=== PATIENT | female | born 1960 | race Caucasian/White ===

== ENCOUNTER → 2017-11-30 | Outpatient (CLI) | payer OTHER ==
[~2017-11-30] MED LIST: ACET500; ACET500 PO; ALPR.5; AMOX875 PO; BUPR150ER; BUPR150T2; BUSP5 PO; CEPH500 PO; CYAN1000I; DOCU100 PO; DULO30; DULO30 PO; DULO60 PO; ESOM20; FAMO20 PO; FAMO40 PO; FENT100TP; FLUO20; GABA300; HYDACE5 PO; HYDR1TAB94 PO; IBUP800 PO; INTE30I; LIDO5TP; LOPE2C PO; MEDICAL MARIJAUNA; MODA200; MODA200 PO; MULVITMINE PO; NAPR220; NAPR500 PO; NAPR550 PO; Norco 5-325 Ta1 EACH PO; OMEP20ER PO; ONDA4 PO; OXYACE5T PO; OXYC20ER; OXYC40ER; PRAV20 PO; PRED20 PO; PREG75 PO; PROM25 PO; PROM25S PR; ROPI1 PO; SULTRIDS PO; SULTRISS PO; SUMA25; TRAACE PO; TRAM50 PO; TRAZ100; TRAZ100 PO; Valium5 MG PO; ZIPR60 PO; ZOLP10; Zofran Odt4 MG SL; [UNRECOGNIZED DRUG - OTHER]
[2017-11-30 13:21] LABS: BASOPHILS ABSOLUTE AUTO 0.01 K/mm3 (0.00-0.23); BASOPHILS PERCENT AUTO 0 % (0-2); EOSINOPHILS ABSOLUTE AUTO 0.07 K/mm3 (0.00-0.68); EOSINOPHILS PERCENT AUTO 1 % (0-6); Hematocrit 45.6 % (33.0-51.0); Hemoglobin 15.5 g/dL (11.5-16.0); IMMATURE GRAN ABSOLUTE AUTO 0.02 K/mm3 (0.00-0.10); IMMATURE GRAN PERCENT AUTO 0 % (0-1); LYMPHOCYTES ABSOLUTE AUTO 2.22 K/mm3 (0.84-5.20); LYMPHOCYTES PERCENT AUTO 30 % (21-46); MONOCYTES ABSOLUTE AUTO 0.37 K/mm3 (0.16-1.47); MONOCYTES PERCENT AUTO 5 % (4-13); Mean Corpuscular HGB 31.1 pg (26.0-34.0); Mean Corpuscular Volume 91 fL (80-100); Mean Platelet Volume 10.2 fL (9.1-12.4); NEUTROPHILS ABSOLUTE AUTO 4.66 K/mm3 (1.96-9.15); NEUTROPHILS PERCENT AUTO 63 % (41-73); Platelet Count 241 K/mm3 (150-400); RDW Coefficient Variation 12.1 % (11.7-14.2); Red Blood Cell Count 4.99 M/mm3 (3.80-5.20); White Blood Cell Count 7.35 K/mm3 (4.00-11.30)
[2017-11-30 13:29] LABS: Alanine Aminotransfer (ALT/SGP 23 U/L (12-78); Albumin, Blood 4.3 g/dL (3.4-5.0); Albumin/Globulin Ratio 1.4 (0.8-1.8); Alk Phos 84 U/L (40-126); Anion Gap 6 mmol/L (6-16); Aspartate Aminotrans (AST/SGOT 20 U/L (12-37); Bilirubin, Total 0.5 mg/dL (0.1-1.0); Blood Urea Nitrogen 10 mg/dL (8-24); Bun/Creatinine Ratio 11.8 (12.0-20.0); CO2, Blood 33 mmol/L (21-32); Calcium, Blood 9.3 mg/dL (8.5-10.1); Chloride, Blood 104 mmol/L (98-108); Creatinine, Blood 0.85 mg/dL (0.40-1.00); Globulin, Blood 3.1 g/dL (2.2-4.0); Glomerular Filtration Rate >60 (60-); Glucose, Blood 110 mg/dL (70-99); Potassium, Blood 4.1 mmol/L (3.5-5.5); Sodium, Blood 143 mmol/L (136-145); Total Protein, Blood 7.4 g/dL (6.4-8.2)
== END ==
LOC: LAB SHORT 13:14
PROVIDERS: Physician Assistant Surgical
DX: R10.11 Right upper quadrant pain (principal)
CPT/HCPCS: 80053; 83690; 85025

== ENCOUNTER 2017-12-01 14:10 | Observation (INO) | payer OTHER ==
[~2017-12-01] VITALS: Ht 162.6 cm; Wt 62.3 kg
[~2017-12-01 14:10] MED LIST changes: -BUSP5 PO; -DOCU100 PO; -HYDR1TAB94 PO; -PRAV20 PO
[2017-12-01 14:57] LABS: BASOPHILS ABSOLUTE AUTO 0.02 K/mm3 (0.00-0.23); BASOPHILS PERCENT AUTO 0 % (0-2); EOSINOPHILS ABSOLUTE AUTO 0.07 K/mm3 (0.00-0.68); EOSINOPHILS PERCENT AUTO 1 % (0-6); Hematocrit 48.1 % (33.0-51.0); Hemoglobin 15.9 g/dL (11.5-16.0); IMMATURE GRAN ABSOLUTE AUTO 0.02 K/mm3 (0.00-0.10); IMMATURE GRAN PERCENT AUTO 0 % (0-1); LYMPHOCYTES ABSOLUTE AUTO 2.92 K/mm3 (0.84-5.20); LYMPHOCYTES PERCENT AUTO 45 % (21-46); MONOCYTES ABSOLUTE AUTO 0.39 K/mm3 (0.16-1.47); MONOCYTES PERCENT AUTO 6 % (4-13); Mean Corpuscular HGB 30.3 pg (26.0-34.0); Mean Corpuscular HGB Conc 33.1 g/dL (31.5-36.5); Mean Corpuscular Volume 92 fL (80-100); Mean Platelet Volume 10.5 fL (9.1-12.4); NEUTROPHILS PERCENT AUTO 48 % (41-73); Platelet Count 228 K/mm3 (150-400); RDW Coefficient Variation 11.9 % (11.7-14.2); RDW Standard Deviation 40.3 fL (35.1-46.3); Red Blood Cell Count 5.25 M/mm3 (3.80-5.20); White Blood Cell Count 6.52 K/mm3 (4.00-11.30)
[2017-12-01 15:16] LABS: Alanine Aminotransfer (ALT/SGP 23 U/L (12-78); Albumin, Blood 4.1 g/dL (3.4-5.0); Alk Phos 81 U/L (50-136); Anion Gap 4 mmol/L (6-16); Aspartate Aminotrans (AST/SGOT 32 U/L (12-37); Bilirubin, Total 0.5 mg/dL (0.1-1.0); Blood Urea Nitrogen 11 mg/dL (8-24); Bun/Creatinine Ratio 15.9 (12.0-20.0); CO2, Blood 33 mmol/L (21-32); Calcium, Blood 9.2 mg/dL (8.5-10.1); Chloride, Blood 101 mmol/L (98-108); Creatinine, Blood 0.69 mg/dL (0.40-1.00); Globulin, Blood 4.1 g/dL (2.2-4.0); Glomerular Filtration Rate >60 (60-); Glucose, Blood 82 mg/dL (70-99); Potassium, Blood 4.7 mmol/L (3.5-5.5); Sodium, Blood 138 mmol/L (136-145); Total Protein, Blood 8.2 g/dL (6.4-8.2)
[2017-12-01 16:20] LABS: Source, Urine Clean Catch
[2017-12-01 16:24] LABS: Bilirubin, Urine Neg (Neg); Blood, Urine 2+ (Neg); Glucose Qualitative, Urine Neg (Neg); Ketones, Urine Neg (Neg); Leukocyte Esterase, Urine Neg (Neg); Nitrite, Urine Neg (Neg); Protein, Urine Neg (Neg); Urobilinogen, Urine NORM (Normal)
[2017-12-01 16:36] LABS: Appearance, Urine Clear (Clear); Color, Urine Pale Yellow (P-Yellow)
[2017-12-01 16:39] LABS: Bacteria Not Seen /hpf; Red Blood Cells, Urine 0-2 /hpf (0-2); Squamous Epithelial Cells Mod /hpf (Few); White Blood Cells, Urine Not Seen /hpf (0-5)
[2017-12-01] MEDS ORDERED: TRAZ100 PO (19:58)
[2017-12-01] MEDS ORDERED: PRAV20 PO (20:00)
[2017-12-01] MEDS ORDERED: BUSP5 PO (20:01)
[2017-12-02 05:37] LABS: BASOPHILS ABSOLUTE AUTO 0.02 K/mm3 (0.00-0.23); BASOPHILS PERCENT AUTO 0 % (0-2); EOSINOPHILS ABSOLUTE AUTO 0.04 K/mm3 (0.00-0.68); EOSINOPHILS PERCENT AUTO 1 % (0-6); Hematocrit 40.1 % (33.0-51.0); Hemoglobin 13.1 g/dL (11.5-16.0); IMMATURE GRAN ABSOLUTE AUTO 0.03 K/mm3 (0.00-0.10); IMMATURE GRAN PERCENT AUTO 0 % (0-1); LYMPHOCYTES PERCENT AUTO 22 % (21-46); MONOCYTES ABSOLUTE AUTO 0.37 K/mm3 (0.16-1.47); MONOCYTES PERCENT AUTO 5 % (4-13); Mean Corpuscular HGB 30.6 pg (26.0-34.0); Mean Corpuscular HGB Conc 32.7 g/dL (31.5-36.5); Mean Corpuscular Volume 94 fL (80-100); Mean Platelet Volume 10.6 fL (9.1-12.4); NEUTROPHILS ABSOLUTE AUTO 5.61 K/mm3 (1.96-9.15); NEUTROPHILS PERCENT AUTO 72 % (41-73); Platelet Count 206 K/mm3 (150-400); RDW Standard Deviation 41.5 fL (35.1-46.3); Red Blood Cell Count 4.28 M/mm3 (3.80-5.20); White Blood Cell Count 7.77 K/mm3 (4.00-11.30)
[2017-12-02 05:57] LABS: Alanine Aminotransfer (ALT/SGP 18 U/L (12-78); Albumin, Blood 3.4 g/dL (3.4-5.0); Albumin/Globulin Ratio 1.2 (0.8-1.8); Alk Phos 65 U/L (50-136); Anion Gap 7 mmol/L (6-16); Aspartate Aminotrans (AST/SGOT 18 U/L (12-37); Bilirubin, Total 0.3 mg/dL (0.1-1.0); Blood Urea Nitrogen 12 mg/dL (8-24); Bun/Creatinine Ratio 15.9 (12.0-20.0); CO2, Blood 27 mmol/L (21-32); Chloride, Blood 106 mmol/L (98-108); Creatinine, Blood 0.76 mg/dL (0.40-1.00); Globulin, Blood 2.9 g/dL (2.2-4.0); Glomerular Filtration Rate >60 (60-); Glucose, Blood 103 mg/dL (70-99); Potassium, Blood 4.2 mmol/L (3.5-5.5); Sodium, Blood 140 mmol/L (136-145); Total Protein, Blood 6.3 g/dL (6.4-8.2)
[2017-12-02 06:00] LABS: Calcium, Blood 8.1 mg/dL (8.5-10.1)
[2017-12-02] MEDS ORDERED: DOCU100 PO (15:57)
[2017-12-02] MEDS ORDERED: HYDR1TAB94 PO (15:58)
== END 2017-12-02 18:08 | disposition home or self-care (01) ==
LOC: ER 14:10 → SURS 14:11 → ER 21:07 → SURS 21:07
PROVIDERS: Emergency Medicine; Internal Medicine; Surgery
PROC: 0FT44ZZ Resection of Gallbladder, Percutaneous Endoscopic Approach (ICD-10-PCS; principal; 2017-12-02 09:30)
DX: K80.10 Calculus of gallbladder with chronic cholecystitis without obstruction (principal); J44.9 Chronic obstructive pulmonary disease, unspecified; F41.9 Anxiety disorder, unspecified; F32.9 Major depressive disorder, single episode, unspecified; F17.210 Nicotine dependence, cigarettes, uncomplicated; E78.5 Hyperlipidemia, unspecified; K21.9 Gastro-esophageal reflux disease without esophagitis; Z98.890 Other specified postprocedural states; Z79.899 Other long term (current) drug therapy
CPT/HCPCS: 36415; 76705; 80053; 81001; 83690; 85025; 88304; 94760; 96361; 96374; 96375; 96376; 99285; G0378; J0697; J1170; J2250; J2270; J2405; J3010; J7030; J7120

== ENCOUNTER → 2020-09-14 | Outpatient (CLI) | payer OTHER ==
[~2020-09-14] MED LIST changes: +BUSP5 PO; +DOCU100 PO; +HYDR1TAB94 PO; +PRAV20 PO
[2020-09-16 20:37] LABS: CORONAVIRUS (COVID19) CSH-NRL Negative (Negative)
== END | disposition home or self-care (01) ==
LOC: LAB SHORT 17:34 → LAB 17:34
PROVIDERS: Family Medicine
DX: Z20.828 Contact with and (suspected) exposure to other viral communicable diseases (principal)
CPT/HCPCS: U0003

== ENCOUNTER 2020-11-20 13:05 | Emergency (ER) | payer OTHER ==
[~2020-11-20] VITALS: Ht 162.6 cm; Wt 61.7 kg
[2020-11-20 14:13] LABS: BASOPHILS ABSOLUTE AUTO 0.04 K/mm3 (0.00-0.23); BASOPHILS PERCENT AUTO 0 % (0-2); EOSINOPHILS ABSOLUTE AUTO 0.14 K/mm3 (0.00-0.68); EOSINOPHILS PERCENT AUTO 1 % (0-6); Hematocrit 48.4 % (33.0-51.0); IMMATURE GRAN ABSOLUTE AUTO 0.06 K/mm3 (0.00-0.10); IMMATURE GRAN PERCENT AUTO 1 % (0-1); LYMPHOCYTES ABSOLUTE AUTO 3.32 K/mm3 (0.84-5.20); LYMPHOCYTES PERCENT AUTO 25 % (21-46); MONOCYTES PERCENT AUTO 7 % (4-13); Mean Corpuscular HGB 30.8 pg (26.0-34.0); Mean Corpuscular HGB Conc 33.1 g/dL (31.5-36.5); Mean Corpuscular Volume 93 fL (80-100); Mean Platelet Volume 10.8 fL (9.1-12.4); NEUTROPHILS ABSOLUTE AUTO 8.76 K/mm3 (1.96-9.15); NEUTROPHILS PERCENT AUTO 66 % (41-73); Platelet Count 287 K/mm3 (150-400); RDW Coefficient Variation 12.3 % (11.7-14.2); RDW Standard Deviation 42.6 fL (35.1-46.3); Red Blood Cell Count 5.19 M/mm3 (3.80-5.20); White Blood Cell Count 13.22 K/mm3 (4.00-11.30)
[2020-11-20 16:33] LABS: Alanine Aminotransfer (ALT/SGP 33 U/L (12-78); Albumin/Globulin Ratio 1.1 (0.8-1.8); Alk Phos 71 U/L (50-136); Anion Gap 6 mmol/L (6-16); Aspartate Aminotrans (AST/SGOT 23 U/L (12-37); Bilirubin, Total 0.6 mg/dL (0.1-1.0); Blood Urea Nitrogen 13 mg/dL (8-24); Bun/Creatinine Ratio 17.5 (12.0-20.0); CO2, Blood 32 mmol/L (21-32); Calcium, Blood 9.5 mg/dL (8.5-10.1); Chloride, Blood 101 mmol/L (98-108); Creatinine, Blood 0.74 mg/dL (0.40-1.00); Globulin, Blood 3.6 g/dL (2.2-4.0); Glomerular Filtration Rate >60 (60-); Glucose, Blood 83 mg/dL (70-99); Potassium, Blood 4.3 mmol/L (3.5-5.5); Sodium, Blood 139 mmol/L (136-145); Total Protein, Blood 7.6 g/dL (6.4-8.2); Troponin I <0.015 ng/mL (0.000-0.040)
== END 2020-11-20 17:16 | disposition left against medical advice (07) ==
LOC: ER 13:05
PROVIDERS: Physician Assistant
DX: R07.9 Chest pain, unspecified (principal); R06.02 Shortness of breath; J44.9 Chronic obstructive pulmonary disease, unspecified; F17.200 Nicotine dependence, unspecified, uncomplicated; Z53.20 Procedure and treatment not carried out because of patient's decision for unspecified reasons
CPT/HCPCS: 36415; 71046; 80053; 84484; 85025; 85379; 93005; 93010; 96374; 99285-25; J1885

== ENCOUNTER 2020-11-30 13:41 | Emergency (ER) | payer OTHER ==
[~2020-11-30] VITALS: Ht 162.6 cm; Wt 60.3 kg
[2020-11-30 14:22] LABS: BASOPHILS ABSOLUTE AUTO 0.02 K/mm3 (0.00-0.23); BASOPHILS PERCENT AUTO 0 % (0-2); EOSINOPHILS ABSOLUTE AUTO 0.27 K/mm3 (0.00-0.68); EOSINOPHILS PERCENT AUTO 3 % (0-6); Hematocrit 42.9 % (33.0-51.0); Hemoglobin 13.9 g/dL (11.5-16.0); IMMATURE GRAN ABSOLUTE AUTO 0.02 K/mm3 (0.00-0.10); IMMATURE GRAN PERCENT AUTO 0 % (0-1); LYMPHOCYTES ABSOLUTE AUTO 2.58 K/mm3 (0.84-5.20); LYMPHOCYTES PERCENT AUTO 28 % (21-46); MONOCYTES ABSOLUTE AUTO 0.56 K/mm3 (0.16-1.47); MONOCYTES PERCENT AUTO 6 % (4-13); Mean Corpuscular HGB 31.2 pg (26.0-34.0); Mean Corpuscular HGB Conc 32.4 g/dL (31.5-36.5); Mean Corpuscular Volume 96 fL (80-100); Mean Platelet Volume 10.4 fL (9.1-12.4); NEUTROPHILS ABSOLUTE AUTO 5.93 K/mm3 (1.96-9.15); NEUTROPHILS PERCENT AUTO 63 % (41-73); Platelet Count 256 K/mm3 (150-400); RDW Coefficient Variation 12.2 % (11.7-14.2); RDW Standard Deviation 42.5 fL (35.1-46.3); Red Blood Cell Count 4.46 M/mm3 (3.80-5.20); White Blood Cell Count 9.38 K/mm3 (4.00-11.30)
[2020-11-30 14:44] LABS: Alanine Aminotransfer (ALT/SGP 27 U/L (12-78); Albumin, Blood 3.3 g/dL (3.4-5.0); Albumin/Globulin Ratio 1.1 (0.8-1.8); Alk Phos 61 U/L (50-136); Anion Gap 2 mmol/L (6-16); Aspartate Aminotrans (AST/SGOT 23 U/L (12-37); Bilirubin, Total 0.4 mg/dL (0.1-1.0); Blood Urea Nitrogen 12 mg/dL (8-24); Bun/Creatinine Ratio 16.7 (12.0-20.0); CO2, Blood 30 mmol/L (21-32); Calcium, Blood 8.8 mg/dL (8.5-10.1); Chloride, Blood 106 mmol/L (98-108); Creatinine, Blood 0.72 mg/dL (0.40-1.00); Globulin, Blood 3.1 g/dL (2.2-4.0); Glomerular Filtration Rate >60 (60-); Glucose, Blood 98 mg/dL (70-99); Potassium, Blood 4.4 mmol/L (3.5-5.5); Sodium, Blood 138 mmol/L (136-145); Total Protein, Blood 6.4 g/dL (6.4-8.2); Troponin I <0.015 ng/mL (0.000-0.040)
[2020-11-30] MEDS ORDERED: HYDR1TAB94 PO (18:18)
== END 2020-11-30 18:45 | disposition home or self-care (01) ==
LOC: ER 13:41
PROVIDERS: Emergency Medicine
DX: S22.31XA Fracture of one rib, right side, initial encounter for closed fracture (principal); J44.9 Chronic obstructive pulmonary disease, unspecified; F17.200 Nicotine dependence, unspecified, uncomplicated; Z79.899 Other long term (current) drug therapy; X58.XXXA Exposure to other specified factors, initial encounter
CPT/HCPCS: 36415; 71046; 80053; 83690; 83880; 84484; 85025; 93005; 93010; 96374; 96375; 99285-25; J1885; J2405; J3010

== ENCOUNTER 2020-12-08 13:41 | Emergency (ER) | payer OTHER ==
[~2020-12-08] VITALS: Ht 162.6 cm; Wt 60.3 kg
[2020-12-08 14:07] LABS: Source, Urine Clean Catch
[2020-12-08 14:15] LABS: Appearance, Urine Clear (Clear); Bilirubin, Urine Neg (Neg); Blood, Urine 4+ (Neg); Color, Urine Yellow (P-Yellow); Glucose Qualitative, Urine Neg (Neg); Ketones, Urine 4+ (Neg); Leukocyte Esterase, Urine 1+ (Neg); Nitrite, Urine Neg (Neg); Protein, Urine 2+ (Neg); Urobilinogen, Urine NORM (Normal)
[2020-12-08 14:26] LABS: BASOPHILS ABSOLUTE AUTO 0.05 K/mm3 (0.00-0.23); BASOPHILS PERCENT AUTO 0 % (0-2); EOSINOPHILS ABSOLUTE AUTO 0.15 K/mm3 (0.00-0.68); EOSINOPHILS PERCENT AUTO 1 % (0-6); Hematocrit 48.2 % (33.0-51.0); Hemoglobin 15.9 g/dL (11.5-16.0); IMMATURE GRAN ABSOLUTE AUTO 0.05 K/mm3 (0.00-0.10); IMMATURE GRAN PERCENT AUTO 0 % (0-1); LYMPHOCYTES ABSOLUTE AUTO 1.95 K/mm3 (0.84-5.20); LYMPHOCYTES PERCENT AUTO 13 % (21-46); MONOCYTES ABSOLUTE AUTO 0.35 K/mm3 (0.16-1.47); MONOCYTES PERCENT AUTO 2 % (4-13); Mean Corpuscular HGB 30.8 pg (26.0-34.0); Mean Corpuscular Volume 93 fL (80-100); Mean Platelet Volume 10.3 fL (9.1-12.4); NEUTROPHILS ABSOLUTE AUTO 12.35 K/mm3 (1.96-9.15); NEUTROPHILS PERCENT AUTO 83 % (41-73); Platelet Count 310 K/mm3 (150-400); RDW Coefficient Variation 12.1 % (11.7-14.2); RDW Standard Deviation 41.8 fL (35.1-46.3); Red Blood Cell Count 5.17 M/mm3 (3.80-5.20)
[2020-12-08 14:32] LABS: Red Blood Cells, Urine 25-50 /hpf (0-2)
[2020-12-08 14:33] LABS: Bacteria Not Seen /hpf; Squamous Epithelial Cells Few /hpf (Few); White Blood Cells, Urine 0-2 /hpf (0-5)
[2020-12-08 14:48] LABS: Alanine Aminotransfer (ALT/SGP 29 U/L (12-78); Albumin, Blood 3.8 g/dL (3.4-5.0); Albumin/Globulin Ratio 1.1 (0.8-1.8); Alk Phos 73 U/L (50-136); Anion Gap 10 mmol/L (6-16); Aspartate Aminotrans (AST/SGOT 36 U/L (12-37); Bilirubin, Total 0.7 mg/dL (0.1-1.0); Blood Urea Nitrogen 17 mg/dL (8-24); Bun/Creatinine Ratio 23.1 (12.0-20.0); CO2, Blood 26 mmol/L (21-32); Calcium, Blood 9.6 mg/dL (8.5-10.1); Chloride, Blood 104 mmol/L (98-108); Creatinine, Blood 0.74 mg/dL (0.40-1.00); Globulin, Blood 3.5 g/dL (2.2-4.0); Glomerular Filtration Rate >60 (60-); Glucose, Blood 159 mg/dL (70-99); Potassium, Blood 4.1 mmol/L (3.5-5.5); Sodium, Blood 140 mmol/L (136-145); Total Protein, Blood 7.3 g/dL (6.4-8.2)
[2020-12-08] MEDS ORDERED: Prochlorperazin10 MG PO (17:04)
[2020-12-08] MEDS ORDERED: TRAM50 PO (17:04)
[2020-12-08] MEDS ORDERED: AMOX-CLAV 875-1 EAC2 PO (17:15)
== END 2020-12-08 17:34 | disposition home or self-care (01) ==
LOC: ER 13:41
PROVIDERS: Emergency Medicine
DX: K52.9 Noninfective gastroenteritis and colitis, unspecified (principal); J44.9 Chronic obstructive pulmonary disease, unspecified; F17.200 Nicotine dependence, unspecified, uncomplicated; Z79.899 Other long term (current) drug therapy
CPT/HCPCS: 71045; 74177; 80053; 81001; 83690; 85025; 87086; 96374-59; 96375; 99284-25; J1170; J2405; J3010; J7030; Q9967

== ENCOUNTER 2021-01-16 12:53 | Observation (INO) | payer OTHER ==
[~2021-01-16] VITALS: Ht 162.6 cm; Wt 58.8 kg
[~2021-01-16 12:53] MED LIST changes: +AMOX-CLAV 875-1 EAC2 PO; +Prochlorperazin10 MG PO
[2021-01-16 13:42] LABS: BASOPHILS ABSOLUTE AUTO 0.03 K/mm3 (0.00-0.23); BASOPHILS PERCENT AUTO 0 % (0-2); EOSINOPHILS ABSOLUTE AUTO 0.02 K/mm3 (0.00-0.68); EOSINOPHILS PERCENT AUTO 0 % (0-6); Hematocrit 47.6 % (33.0-51.0); Hemoglobin 16.1 g/dL (11.5-16.0); IMMATURE GRAN ABSOLUTE AUTO 0.03 K/mm3 (0.00-0.10); IMMATURE GRAN PERCENT AUTO 0 % (0-1); LYMPHOCYTES ABSOLUTE AUTO 1.76 K/mm3 (0.84-5.20); LYMPHOCYTES PERCENT AUTO 17 % (21-46); MONOCYTES ABSOLUTE AUTO 0.24 K/mm3 (0.16-1.47); MONOCYTES PERCENT AUTO 2 % (4-13); Mean Corpuscular HGB 31.1 pg (26.0-34.0); Mean Corpuscular HGB Conc 33.8 g/dL (31.5-36.5); Mean Corpuscular Volume 92 fL (80-100); Mean Platelet Volume 10.5 fL (9.1-12.4); NEUTROPHILS ABSOLUTE AUTO 8.37 K/mm3 (1.96-9.15); NEUTROPHILS PERCENT AUTO 80 % (41-73); Platelet Count 258 K/mm3 (150-400); RDW Coefficient Variation 11.6 % (11.7-14.2); RDW Standard Deviation 39.4 fL (35.1-46.3); Red Blood Cell Count 5.18 M/mm3 (3.80-5.20); White Blood Cell Count 10.45 K/mm3 (4.00-11.30)
[2021-01-16 14:07] LABS: International Normalized Ratio 0.96; Prothrombin Time Results 10.3 Sec (9.7-11.5)
[2021-01-16 14:10] LABS: Alanine Aminotransfer (ALT/SGP 31 U/L (12-78); Albumin/Globulin Ratio 1.2 (0.8-1.8); Alk Phos 78 U/L (50-136); Anion Gap 7 mmol/L (6-16); Aspartate Aminotrans (AST/SGOT 31 U/L (12-37); Bilirubin, Total 0.9 mg/dL (0.1-1.0); Blood Urea Nitrogen 14 mg/dL (8-24); Bun/Creatinine Ratio 20.1 (12.0-20.0); CO2, Blood 30 mmol/L (21-32); Calcium, Blood 9.5 mg/dL (8.5-10.1); Chloride, Blood 104 mmol/L (98-108); Globulin, Blood 3.2 g/dL (2.2-4.0); Glomerular Filtration Rate >60 (60-); Glucose, Blood 148 mg/dL (70-99); Potassium, Blood 4.6 mmol/L (3.5-5.5); Sodium, Blood 141 mmol/L (136-145); Total Protein, Blood 7.2 g/dL (6.4-8.2)
[2021-01-16] MEDS ORDERED: PROP10 PO (15:06)
[2021-01-16] MEDS ORDERED: ALBU2.5V5 INH (15:07)
[2021-01-16] MEDS ORDERED: ALBU90OI INH (15:07)
[2021-01-16 15:30] LABS: Source, Urine Clean Catch
[2021-01-16 15:38] LABS: Appearance, Urine Clear (Clear); Bilirubin, Urine Neg (Neg); Blood, Urine 4+ (Neg); Color, Urine Yellow (P-Yellow); Glucose Qualitative, Urine Neg (Neg); Ketones, Urine 3+ (Neg); Leukocyte Esterase, Urine Neg (Neg); Nitrite, Urine Neg (Neg); Protein, Urine Neg (Neg); Urobilinogen, Urine NORM (Normal); pH, Urine 6.5 (5.0-8.0)
[2021-01-16 15:45] LABS: Red Blood Cells, Urine 25-50 /hpf (0-2); White Blood Cells, Urine 0-2 /hpf (0-5)
[2021-01-16 15:46] LABS: Bacteria Few /hpf; Squamous Epithelial Cells Few /hpf (Few)
--- NOTE | 2021-01-16 18:18 | NUR ---
PT ARRIVED TO ROOM AOX4 AND COOPERATIVE OF CARE. PT DID REPORT NAUSEA AND STATED HER PAIN LEVEL WAS A 3 WHICH SHE SAID WAS GOOD. PT HAS CALL LIGHT WITHIN REACH AND IN ROOM WITH HER AT THIS TIME WILL CONTINUE TO MONITOR.
--- NOTE | 2021-01-16 19:10 | NUR ---
ASSUMED CARE RECEIVED REPORT FROM MASSIMO CORNEJO. PT RESTING COMFORTABLY, IN NO ACUTE DISTRESS. NO ACUTE NEEDS ASSESSED AT THIS TIME, UP TO WALK AROUND THE UNIT. CONTINUE TO MONITOR.
--- NOTE | 2021-01-17 04:33 | NUR ---
SPOKE TO DR. CASEY REGARDING PT'S LOW BP. ORDERS RECEIVED. WILL CONTINUE TO MONITOR.
--- NOTE | 2021-01-17 07:15 | NUR ---
COMPO CONVEYOR OPERATOR SUMMARY PT RESTING COMFORTABLY, IN NO ACUTE DISTRESS. VS REVIEWED, BP'S SLIGHTLY IMPROVING, OTHER VS WNL. IVF BOLUS ONGOING. PT HAS BEEN SLEEPING THROUGH MUCH OF THE NIGHT. TROPONINS NEGATIVE. PT UP TO BATHROOM, DENIES OTHER NEEDS AT THIS TIME. REPORT GIVEN TO MASSIMO HILL.
--- NOTE | 2021-01-17 11:09 | NUR ---
Echocardiogram completed.
[2021-01-17] MEDS ORDERED: ATOR40TA PO (16:26)
[2021-01-17] MEDS ORDERED: FLUTICASONE-SA1 EAC1 INH (16:28)
[2021-01-17] MEDS ORDERED: Atarax10 MG PO (16:29)
[2021-01-17] MEDS ORDERED: Nicoderm Cq1 EAC1 TOP (16:30)
[2021-01-17] MEDS ORDERED: IPRAT-ALBUT 0.5-3 ML INH (16:30)
[2021-01-17] MEDS ORDERED: Prochlorperazin10 MG PO (16:32)
[2021-01-17] MEDS ORDERED: Imitrex50 MG PO (16:33)
[2021-01-17] MEDS ORDERED: SPIRIVA RESPIMAT4 G3 INH (16:33)
[2021-01-17] MEDS ORDERED: VISBIOME 112.51 EACH PO (16:34)
[2021-01-17] MEDS ORDERED: MIRALAX119 GM PO (16:34)
--- NOTE | 2021-01-17 16:54 | NUR ---
DISCHARGE SUMMARY: PATIENT DENIED CHEST PAIN OR EPIGASTRIC PAIN THROUGHOUT SHIFT. PATIENT DENIED NAUSEA OR ABDOMINAL CRAMPING, AT REST OR AFTER EATING. PATIENT INDEPENDENT IN THE ROOM. PATIENT DENIED DIZZINESS OR FEELING UNSTEADY ON HER FEET. PATIENT TO BE DISCHARGED WITH O2 WITH ACTIVITY. O2 ARRIVED TO THE ROOM PRIOR TO DISCHARGE. DISCHARGE EDUCATION AND INSTRUCTIONS PROVIDED TO THE PATIENT. ALL QUESTIONS AND CONCERNS ADDRESSED WITH THE PATIENT. ENCOURAGED PATIENT TO BRING DISCHARGE MEDICATION LIST TO HER FOLLOW-UP APPOINTMENT. PATIENT DISCHARGED WITH HER VISITOR/RIDE HOME. PATIENT STABLE ON FEET. PATIENT REFUSED ESCORT OUT OF THE HOSPITAL. PATIENT STABLE AT TIME OF DISCHARGE.
--- NOTE | 2021-01-17 16:57 | NUR ---
BLOOD PRESSURE: LATE ENTRY: 1000 DISCUSSED PATIENT'S BLOOD PRESSURES THIS AM WITH DR. Latisha DIOP. PATIENT SBP HAS BEEN 96. PATIENT HAS DENIED CHEST PAIN, DIZZINESS, OR SOB AT REST OR WITH ACTIVITY. PATIENT STABLE ON HER FEET. PATIENT ASYMPTOMATIC. NO NEW ORDERS AT THIS TIME.
--- NOTE | 2021-01-17 21:33 | NUR ---
ADMIT:01/16/21 DISCHARGE: 01/17/21 DX:Epigastric pain and nausea CC: kwilcox CHRISTIAN CALL: Met bassem Thompson, call her at home for christian RESIDENCE: home with spouce CAREGIVER: Lalit Peterson, Spouse / Partner, Tamy Marshall, Child, DX: COPD, prediabetes, tardive dyskinesia,see list DME: knee brace, Oxygen 2 l/m 24 hours CCM: referred 01/17/21, copd, prediabetes, anxiety. HOME HEALTH: none SUMMARY: Admit: 01/16/21 01/17/21 Discharge home with , discussed chronic care management and copd education with [facility]. Referrals sent for both. Home oxygen ordered 2 l/m 24 hours from [facility]. reviewed discharge check list, did not identify any addtional needs. Reviewed christian letter and follow up appointment in 1 week to be scheduled by phone or Friday. Expecting our call. 1: Epigastric abdominal pain
[2021-01-18] MEDS ORDERED: AMOCLA875 PO (21:27)
== END 2021-01-17 16:44 | disposition home or self-care (01) ==
LOC: ER 12:53 → ERHOLD 16:29 → MEDS 17:51
PROVIDERS: Emergency Medicine; Physician Assistant; ADMIT Family Medicine
DX: R10.13 Epigastric pain (principal); R94.31 Abnormal electrocardiogram [ECG] [EKG]; K59.01 Slow transit constipation; J44.9 Chronic obstructive pulmonary disease, unspecified; M19.90 Unspecified osteoarthritis, unspecified site; F41.9 Anxiety disorder, unspecified; F17.200 Nicotine dependence, unspecified, uncomplicated; K52.3 Indeterminate colitis; G35 Multiple sclerosis; E78.5 Hyperlipidemia, unspecified; K44.9 Diaphragmatic hernia without obstruction or gangrene; M79.7 Fibromyalgia; K57.30 Diverticulosis of large intestine without perforation or abscess without bleeding; Z87.828 Personal history of other (healed) physical injury and trauma
CPT/HCPCS: 36415; 71260; 74177; 80053; 81001; 83605; 83690; 84484; 85025; 85610; 85730; 93005; 93010; 93306; 94640; 94760; 94761; 96372; 96374-59; 96375-59; 96376; 99285-25; A9270; G0378; J1170; J1650; J2270; J2405; J7030; J7040; Q9967

== ENCOUNTER 2021-01-18 14:20 | Emergency (ER) | payer OTHER ==
[~2021-01-18] VITALS: Ht 162.6 cm; Wt 59.0 kg
[~2021-01-18 14:20] MED LIST changes: +ALBU2.5V5 INH; +ALBU90OI INH; +ATOR40TA PO; +Atarax10 MG PO; +FLUTICASONE-SA1 EAC1 INH; +IPRAT-ALBUT 0.5-3 ML INH; +Imitrex50 MG PO; +MIRALAX119 GM PO; +Nicoderm Cq1 EAC1 TOP; +PROP10 PO; +SPIRIVA RESPIMAT4 G3 INH; +VISBIOME 112.51 EACH PO
[2021-01-18 15:50] LABS: BASOPHILS ABSOLUTE AUTO 0.01 K/mm3 (0.00-0.23); BASOPHILS PERCENT AUTO 0 % (0-2); EOSINOPHILS PERCENT AUTO 0 % (0-6); Hematocrit 47.9 % (33.0-51.0); Hemoglobin 16.3 g/dL (11.5-16.0); IMMATURE GRAN ABSOLUTE AUTO 0.05 K/mm3 (0.00-0.10); IMMATURE GRAN PERCENT AUTO 1 % (0-1); LYMPHOCYTES ABSOLUTE AUTO 0.82 K/mm3 (0.84-5.20); LYMPHOCYTES PERCENT AUTO 9 % (21-46); MONOCYTES ABSOLUTE AUTO 0.17 K/mm3 (0.16-1.47); MONOCYTES PERCENT AUTO 2 % (4-13); Mean Corpuscular Volume 91 fL (80-100); Mean Platelet Volume 10.5 fL (9.1-12.4); NEUTROPHILS ABSOLUTE AUTO 7.97 K/mm3 (1.96-9.15); NEUTROPHILS PERCENT AUTO 88 % (41-73); Platelet Count 217 K/mm3 (150-400); RDW Coefficient Variation 11.5 % (11.7-14.2); RDW Standard Deviation 38.9 fL (35.1-46.3); Red Blood Cell Count 5.26 M/mm3 (3.80-5.20); White Blood Cell Count 9.02 K/mm3 (4.00-11.30)
[2021-01-18 16:08] LABS: Alanine Aminotransfer (ALT/SGP 42 U/L (12-78); Albumin, Blood 4.5 g/dL (3.4-5.0); Albumin/Globulin Ratio 1.3 (0.8-1.8); Alk Phos 81 U/L (50-136); Anion Gap 8 mmol/L (6-16); Aspartate Aminotrans (AST/SGOT 46 U/L (12-37); Bilirubin, Total 0.7 mg/dL (0.1-1.0); Blood Urea Nitrogen 8 mg/dL (8-24); Bun/Creatinine Ratio 12.8 (12.0-20.0); CO2, Blood 30 mmol/L (21-32); Calcium, Blood 9.7 mg/dL (8.5-10.1); Chloride, Blood 101 mmol/L (98-108); Creatinine, Blood 0.63 mg/dL (0.40-1.00); Globulin, Blood 3.5 g/dL (2.2-4.0); Glomerular Filtration Rate >60 (60-); Glucose, Blood 110 mg/dL (70-99); Potassium, Blood 3.6 mmol/L (3.5-5.5); Sodium, Blood 139 mmol/L (136-145)
[2021-01-18 20:22] LABS: Source, Urine Clean Catch
[2021-01-18 20:25] LABS: Bilirubin, Urine Neg (Neg); Blood, Urine 5+ (Neg); Glucose Qualitative, Urine 1+ (Neg); Ketones, Urine 4+ (Neg); Leukocyte Esterase, Urine Neg (Neg); Nitrite, Urine Neg (Neg); Protein, Urine 3+ (Neg); Specific Gravity, Urine 1.015 (1.003-1.022); Urobilinogen, Urine NORM (Normal); pH, Urine 6.5 (5.0-8.0)
[2021-01-18 20:32] LABS: Appearance, Urine Clear (Clear); Color, Urine Yellow (P-Yellow)
[2021-01-18 20:33] LABS: Bacteria Not Seen /hpf; Hyaline Casts 0-2 /lpf (0-2); Red Blood Cells, Urine 50-100 /hpf (0-2); Squamous Epithelial Cells Few /hpf (Few); White Blood Cells, Urine Not Seen /hpf (0-5)
[2021-01-18] MEDS ORDERED: AMOCLA875 PO (21:27)
== END 2021-01-18 22:26 | disposition home or self-care (01) ==
LOC: ER 14:20
PROVIDERS: Physician Assistant
DX: K52.9 Noninfective gastroenteritis and colitis, unspecified (principal); Z79.899 Other long term (current) drug therapy
CPT/HCPCS: 80053; 81001; 83690; 85025; 96374; 96375; 96376; 99284-25; A9270; J1200; J1790; J1885; J2405; J2550

== ENCOUNTER → 2021-02-08 | Outpatient (CLI) | payer OTHER ==
[~2021-02-08] MED LIST changes: +AMOCLA875 PO
== END | disposition home or self-care (01) ==
LOC: LAB SHORT 09:26 → LAB EV 09:26
DX: N39.0 Urinary tract infection, site not specified (principal)
CPT/HCPCS: 87077; 87086; 87186

== ENCOUNTER → 2021-02-08 | Outpatient (CLI) | payer OTHER | END | disposition home or self-care (01) | LOC: LAB SHORT 12:37 | DX: L72.8 Other follicular cysts of the skin and subcutaneous tissue (principal) | CPT/HCPCS: 88304 ==

== ENCOUNTER 2021-12-03 10:45 | Day surgery (SDC) | payer OTHER ==
[~2021-12-03] VITALS: Ht 162.6 cm; Wt 58.4 kg
[~2021-12-03 10:45] MED LIST changes: +ALBUTEROL1.25 MG/3 INH; +IMITREX50 MG PO; +Inderal40 MG; +MEDICAL MARIJUANA; +MULTIPLE VITAM1 EACH PO; +WIXELA 250-501 EAC1 INH
--- NOTE | 2021-12-03 11:09 | NUR ---
12/03/21 1109 Flaca Larry 1 TRY RIGHT HAND NO FLASH
== END 2021-12-03 12:37 | disposition home or self-care (01) ==
LOC: ORSCSDS 10:45
PROVIDERS: Student in an Organized Health Care Education/Training Program
PROC: 0DB58ZX Excision of Esophagus, Via Natural or Artificial Opening Endoscopic, Diagnostic (ICD-10-PCS; principal; 2021-12-03 12:00)
PROC: 0D758ZZ Dilation of Esophagus, Via Natural or Artificial Opening Endoscopic (ICD-10-PCS; principal; 2021-12-03 12:00)
PROC: 0DB48ZX Excision of Esophagogastric Junction, Via Natural or Artificial Opening Endoscopic, Diagnostic (ICD-10-PCS; principal; 2021-12-03 12:00)
DX: R10.13 Epigastric pain (principal); R13.10 Dysphagia, unspecified; K21.9 Gastro-esophageal reflux disease without esophagitis; F41.9 Anxiety disorder, unspecified; J44.9 Chronic obstructive pulmonary disease, unspecified; K44.9 Diaphragmatic hernia without obstruction or gangrene; F17.210 Nicotine dependence, cigarettes, uncomplicated; Z79.899 Other long term (current) drug therapy
CPT/HCPCS: 88305; 88312; J2704; J7120

== ENCOUNTER 2022-02-06 13:01 | Emergency (ER) | payer OTHER ==
[~2022-02-06] VITALS: Ht 160 cm; Wt 57.1 kg
[2022-02-06 14:39] LABS: BASOPHILS ABSOLUTE AUTO 0.03 K/mm3 (0.00-0.23); BASOPHILS PERCENT AUTO 0 % (0-2); EOSINOPHILS ABSOLUTE AUTO 0.13 K/mm3 (0.00-0.68); EOSINOPHILS PERCENT AUTO 1 % (0-6); Hematocrit 47.8 % (33.0-51.0); Hemoglobin 16.3 g/dL (11.5-16.0); IMMATURE GRAN ABSOLUTE AUTO 0.04 K/mm3 (0.00-0.10); IMMATURE GRAN PERCENT AUTO 0 % (0-1); LYMPHOCYTES ABSOLUTE AUTO 3.29 K/mm3 (0.84-5.20); LYMPHOCYTES PERCENT AUTO 36 % (21-46); MONOCYTES ABSOLUTE AUTO 0.72 K/mm3 (0.16-1.47); MONOCYTES PERCENT AUTO 8 % (4-13); Mean Corpuscular HGB 30.9 pg (26.0-34.0); Mean Corpuscular HGB Conc 34.1 g/dL (31.5-36.5); Mean Corpuscular Volume 91 fL (80-100); NEUTROPHILS ABSOLUTE AUTO 5.04 K/mm3 (1.96-9.15); NEUTROPHILS PERCENT AUTO 55 % (41-73); RDW Coefficient Variation 12.1 % (11.7-14.2); RDW Standard Deviation 40.6 fL (35.1-46.3); Red Blood Cell Count 5.27 M/mm3 (3.80-5.20); White Blood Cell Count 9.25 K/mm3 (4.00-11.30)
[2022-02-06 14:46] LABS: Mean Platelet Volume 10.6 fL (9.1-12.4); Platelet Count 243 K/mm3 (150-400)
[2022-02-06 17:21] LABS: Alanine Aminotransfer (ALT/SGP 32 U/L (12-78); Albumin, Blood 3.9 g/dL (3.4-5.0); Albumin/Globulin Ratio 1.1 (0.8-1.8); Alk Phos 79 U/L (50-136); Anion Gap 6 mmol/L (6-16); Aspartate Aminotrans (AST/SGOT 28 U/L (12-37); Bilirubin, Total 0.4 mg/dL (0.1-1.0); Blood Urea Nitrogen 11 mg/dL (8-24); Bun/Creatinine Ratio 13.2 (12.0-20.0); CO2, Blood 32 mmol/L (21-32); Calcium, Blood 9.3 mg/dL (8.5-10.1); Chloride, Blood 103 mmol/L (98-108); Creatinine, Blood 0.84 mg/dL (0.40-1.00); Globulin, Blood 3.4 g/dL (2.2-4.0); Glomerular Filtration Rate >60 (60-); Glucose, Blood 97 mg/dL (70-99); Potassium, Blood 3.7 mmol/L (3.5-5.5); Sodium, Blood 141 mmol/L (136-145); Total Protein, Blood 7.3 g/dL (6.4-8.2)
[2022-02-06] MEDS ORDERED: GABA300 PO (17:41)
[2022-02-06] MEDS ORDERED: ACYC800 PO (17:41)
[2022-02-06] MEDS ORDERED: Norco 5-325 Ta1 EACH PO (17:41)
== END 2022-02-06 18:08 | disposition home or self-care (01) ==
LOC: ER 13:01
PROVIDERS: Physician Assistant
DX: B02.9 Zoster without complications (principal); Z79.899 Other long term (current) drug therapy; J44.9 Chronic obstructive pulmonary disease, unspecified; F17.210 Nicotine dependence, cigarettes, uncomplicated
CPT/HCPCS: 36415; 71046; 71100; 80053; 84484; 85025; 93005; 93010; 94640; 94664; 99284-25; A9270

== ENCOUNTER 2022-09-12 11:46 | Emergency (ER) | payer OTHER ==
[~2022-09-12] VITALS: Ht 160 cm; Wt 60.8 kg
[~2022-09-12 11:46] MED LIST changes: +ACYC800 PO; +GABA300 PO
[2022-09-12] MEDS ORDERED: Prednisone20 MG PO (12:58)
[2022-09-12] MEDS ORDERED: HYDR1TAB94 PO (13:04)
== END 2022-09-12 13:14 | disposition home or self-care (01) ==
LOC: ER 11:46
DX: M25.511 Pain in right shoulder (principal); J44.9 Chronic obstructive pulmonary disease, unspecified; F17.210 Nicotine dependence, cigarettes, uncomplicated; Z79.899 Other long term (current) drug therapy
CPT/HCPCS: 73030; J7512

== ENCOUNTER → 2022-12-20 | Outpatient (CLI) | payer OTHER ==
[~2022-12-20] MED LIST changes: +Prednisone20 MG PO
== END | disposition home or self-care (01) ==
LOC: LAB SHORT 10:40 → LAB 10:40
DX: R30.0 Dysuria (principal)
CPT/HCPCS: 87086

== ENCOUNTER → 2023-03-27 | Outpatient (CLI) | payer OTHER | END | disposition home or self-care (01) | LOC: LAB EV 14:37 → PLD 14:37 → LAB SHORT 14:37 | DX: C44.319 Basal cell carcinoma of skin of other parts of face (principal) | CPT/HCPCS: 88305 ==

== ENCOUNTER 2024-10-18 16:37 | Inpatient (IN) | payer OTHER ==
[~2024-10-18] VITALS: Ht 162.6 cm; Wt 55.0 kg
[2024-10-18 17:50] LABS: BASOPHILS ABSOLUTE AUTO 0.01 K/mm3 (0.00-0.23); BASOPHILS PERCENT AUTO 0 % (0-2); EOSINOPHILS PERCENT AUTO 0 % (0-6); Hematocrit 48.1 % (33.0-51.0); Hemoglobin 16.1 g/dL (11.5-16.0); IMMATURE GRAN ABSOLUTE AUTO 0.05 K/mm3 (0.00-0.10); IMMATURE GRAN PERCENT AUTO 1 % (0-1); LYMPHOCYTES ABSOLUTE AUTO 0.83 K/mm3 (0.84-5.20); LYMPHOCYTES PERCENT AUTO 9 % (21-46); MONOCYTES ABSOLUTE AUTO 0.19 K/mm3 (0.16-1.47); MONOCYTES PERCENT AUTO 2 % (4-13); Mean Corpuscular HGB 31.2 pg (26.0-34.0); Mean Corpuscular HGB Conc 33.5 g/dL (31.5-36.5); Mean Corpuscular Volume 93 fL (80-100); Mean Platelet Volume 10.4 fL (9.1-12.4); NEUTROPHILS ABSOLUTE AUTO 8.32 K/mm3 (1.96-9.15); NEUTROPHILS PERCENT AUTO 89 % (41-73); Platelet Count 231 K/mm3 (150-400); RDW Coefficient Variation 12.9 % (11.7-14.2); RDW Standard Deviation 43.9 fL (35.1-46.3); Red Blood Cell Count 5.16 M/mm3 (3.80-5.20)
[2024-10-18] MEDS ORDERED: Albuterol 2.5 MG/3 ML VIAL INH SCH (17:50)
[2024-10-18 18:11] LABS: Albumin, Blood 3.9 g/dL (3.4-5.0); Albumin/Globulin Ratio 1.1 (0.8-1.8); Bilirubin, Total 0.7 mg/dL (0.1-1.0); Bun/Creatinine Ratio 39.6 (12.0-20.0); Calcium, Blood 9.2 mg/dL (8.5-10.1); Creatinine, Blood 0.66 mg/dL (0.40-1.00); Globulin, Blood 3.4 g/dL (2.2-4.0); Potassium, Blood 4.1 mmol/L (3.5-5.5); Total Protein, Blood 7.3 g/dL (6.4-8.2)
[2024-10-18 18:59] LABS: Influenza A, PCR NEGATIVE (NEGATIVE); Influenza B, PCR NEGATIVE (NEGATIVE); Resp Syncytial Virus, PCR NEGATIVE (NEGATIVE); SARS-Cov-2 (COVID-19) PCR, MMC NEGATIVE (NEGATIVE)
[2024-10-18] MEDS ORDERED: Ipratropium/Albuterol SulF 2.5-0.5MG/3 ML Amp INH PRN (22:15)
[2024-10-18] MEDS ORDERED: Ondansetron HCl 2 MG / ML 2ML Vial IV PRN (22:15)
[2024-10-18] MEDS ORDERED: Guaifenesin/Dextromethorphan Syrup 5 ML UDC PO PRN (22:20)
[2024-10-18] MEDS ORDERED: FLU VACC TS2024-25(6MOS UP)/PF 45 MCG/0.5 ML SYRINGE IM SCH (22:20)
[2024-10-18] MEDS ORDERED: Azithromycin 500 MG in NS 250 ML IV SCH (22:41)
[2024-10-18] MEDS ORDERED: Enoxaparin 40 MG/0.4 ML SYR SC SCH (23:00)
[2024-10-19] MEDS ORDERED: MethylPREDNISolone Sod Succ 125 MG Vial IV SCH
[2024-10-19 03:33] LABS: BASOPHILS PERCENT AUTO 0 % (0-2); EOSINOPHILS PERCENT AUTO 0 % (0-6); Hematocrit 46.5 % (33.0-51.0); Hemoglobin 15.4 g/dL (11.5-16.0); IMMATURE GRAN ABSOLUTE AUTO 0.03 K/mm3 (0.00-0.10); IMMATURE GRAN PERCENT AUTO 1 % (0-1); LYMPHOCYTES ABSOLUTE AUTO 0.62 K/mm3 (0.84-5.20); LYMPHOCYTES PERCENT AUTO 10 % (21-46); MONOCYTES ABSOLUTE AUTO 0.13 K/mm3 (0.16-1.47); MONOCYTES PERCENT AUTO 2 % (4-13); Mean Corpuscular HGB 30.7 pg (26.0-34.0); Mean Corpuscular HGB Conc 33.1 g/dL (31.5-36.5); Mean Corpuscular Volume 93 fL (80-100); Mean Platelet Volume 10.5 fL (9.1-12.4); NEUTROPHILS ABSOLUTE AUTO 5.77 K/mm3 (1.96-9.15); NEUTROPHILS PERCENT AUTO 88 % (41-73); Platelet Count 238 K/mm3 (150-400); RDW Coefficient Variation 12.7 % (11.7-14.2); RDW Standard Deviation 43.4 fL (35.1-46.3); Red Blood Cell Count 5.02 M/mm3 (3.80-5.20); White Blood Cell Count 6.55 K/mm3 (4.00-11.30)
[2024-10-19 04:01] LABS: Albumin, Blood 3.8 g/dL (3.4-5.0); Albumin/Globulin Ratio 1.2 (0.8-1.8); Bilirubin, Total 0.8 mg/dL (0.1-1.0); Bun/Creatinine Ratio 39.5 (12.0-20.0); Calcium, Blood 8.7 mg/dL (8.5-10.1); Creatinine, Blood 0.61 mg/dL (0.40-1.00); Globulin, Blood 3.3 g/dL (2.2-4.0); Potassium, Blood 4.7 mmol/L (3.5-5.5); Total Protein, Blood 7.1 g/dL (6.4-8.2)
[2024-10-19] MEDS ORDERED: Acetaminophen 325 MG TABLET PO PRN (07:55)
[2024-10-19] MEDS ORDERED: Morphine Sulfate 20 MG/1ML 1 ML Oral Syringe PO PRN ×2 (08:25→18:05)
[2024-10-19] MEDS ORDERED: Doxycycline Hyclate 100 MG TAB PO SCH (09:00)
[2024-10-19] MEDS ORDERED: Nicotine 21 MG PATCH TOP SCH (09:00)
[2024-10-19] MEDS ORDERED: PRED20 PO (09:50)
[2024-10-19] MEDS ORDERED: MONDOXYNE NL100 MG PO (09:50)
[2024-10-19] MEDS ORDERED: Buspirone HCl15 MG PO (09:52)
[2024-10-19] MEDS ORDERED: TIZANIDINE HCL2 M1 PO (09:52)
[2024-10-19] MEDS ORDERED: QUET100 PO (09:52)
[2024-10-19] MEDS ORDERED: LYRICA150 M1 PO (12:31)
[2024-10-19] MEDS ORDERED: Pregabalin 75 MG Cap PO SCH (14:00)
[2024-10-19 14:29] VITALS: BP 151/100
--- NOTE | 2024-10-19 16:27 | NUR ---
ADMIT NOTE GOT REPORT FROM RYAN KEYS IN ER. PT ARRIVED TO FLOOR AT 1428. PT A&OX4. PT REPORTS HEADACHE, MEDICATED PER EMAR. DID ADMIT ASSESS. PT TRANSFERED SELF FROM ER BED INDEPENDEDNTLY. PT EDUCATED ON INCENTIVE SPIROMETER. PT ON TELE. PT ON 3L O2 VIA N/C. REPORTS USING 2L AT BASELINE. PT TRIPODING AND HAS NOTED TACHYPNEA. PT ORIENTED TO ROOM AND FALL PRECAUTIONS AND CALL LIGHT. SON AT BEDSIDE. CALL LIGHT IN REACH. 2 RN SKIN CHECK COMPLETE. PT KNOWS WILL NEED SPUTUM CULTURE, CUP AT BEDSIDE.
[2024-10-19] MEDS ORDERED: CELE100 PO (17:34)
[2024-10-19] MEDS ORDERED: ONDA4 PO (17:35)
[2024-10-19] MEDS ORDERED: IPRAT-ALBUT 0.5-3 ML INH (17:36)
[2024-10-19] MEDS ORDERED: FORMOTEROL20 MCG/2 M INH (17:37)
--- NOTE | 2024-10-19 17:41 | NUR ---
SHIFT SUMMARY PT A&OX4. PT ADMITTED DUE TO COPD EXACERBATION. PT ON 3L O2 VIA N/C. PT REPORTS SOB. PT IN TRIPOD POSITION SITTING UPWARD IN BED. PT HAS INCREASE WORK OF BREATHING UPON AMBULATION. PT USING THE BSC. PT HAS INCENTIVE SPIROMETER AT BEDSIDE. EDUCATED PT ON PURSED LIP BREATHING. PT RECEIVING IMAN FOR AIR HUNGER. AND GETS BREATHING TREATMENTS. PT ON TELE. BED IN LOWEST POSITION. PT MAKES NEEDS KNOWN. CALL LIGHT IN REACH. PT BLOOD PRESSURE HAS BEEN ELEVATED, SPO2 IS 93%.
--- NOTE | 2024-10-19 18:39 | NUR ---
med reconciliation completed from patient home medication photos sent on patient phone.
[2024-10-19 19:25] VITALS: BP 160/107
[2024-10-19] MEDS ORDERED: QUEtiapine Fumarate 100 MG Tab PO SCH (21:00)
[2024-10-19] MEDS ORDERED: TraZODone HCl 100 MG Tab PO SCH (21:00)
[2024-10-19] MEDS ORDERED: BusPIRone HCl 10 MG Tab PO SCH (21:00)
[2024-10-20 01:46] VITALS: BP 137/80
[2024-10-20 05:04] LABS: BASOPHILS PERCENT AUTO 0 % (0-2); EOSINOPHILS PERCENT AUTO 0 % (0-6); Hematocrit 44.5 % (33.0-51.0); Hemoglobin 14.8 g/dL (11.5-16.0); IMMATURE GRAN ABSOLUTE AUTO 0.06 K/mm3 (0.00-0.10); IMMATURE GRAN PERCENT AUTO 1 % (0-1); LYMPHOCYTES ABSOLUTE AUTO 0.68 K/mm3 (0.84-5.20); LYMPHOCYTES PERCENT AUTO 9 % (21-46); MONOCYTES ABSOLUTE AUTO 0.32 K/mm3 (0.16-1.47); MONOCYTES PERCENT AUTO 4 % (4-13); Mean Corpuscular HGB 30.9 pg (26.0-34.0); Mean Corpuscular HGB Conc 33.3 g/dL (31.5-36.5); Mean Corpuscular Volume 93 fL (80-100); Mean Platelet Volume 10.8 fL (9.1-12.4); NEUTROPHILS ABSOLUTE AUTO 6.67 K/mm3 (1.96-9.15); NEUTROPHILS PERCENT AUTO 86 % (41-73); Platelet Count 217 K/mm3 (150-400); RDW Coefficient Variation 12.4 % (11.7-14.2); RDW Standard Deviation 42.8 fL (35.1-46.3); Red Blood Cell Count 4.79 M/mm3 (3.80-5.20); White Blood Cell Count 7.73 K/mm3 (4.00-11.30)
[2024-10-20 05:34] LABS: Albumin, Blood 3.4 g/dL (3.4-5.0); Albumin/Globulin Ratio 1.2 (0.8-1.8); Bilirubin, Total 0.5 mg/dL (0.1-1.0); Bun/Creatinine Ratio 38.2 (12.0-20.0); Calcium, Blood 9.2 mg/dL (8.5-10.1); Creatinine, Blood 0.68 mg/dL (0.40-1.00); Globulin, Blood 2.8 g/dL (2.2-4.0); Potassium, Blood 4.5 mmol/L (3.5-5.5); Total Protein, Blood 6.2 g/dL (6.4-8.2)
[2024-10-20 07:57] VITALS: BP 136/93
[2024-10-20] MEDS ORDERED: Atorvastatin 40 MG Tab PO SCH (09:00)
[2024-10-20] MEDS ORDERED: ALBU90OI INH (15:08)
[2024-10-20 15:34] VITALS: BP 143/87
[2024-10-20] MEDS ORDERED: OMEP20ER PO (16:05)
--- NOTE | 2024-10-20 18:18 | NUR ---
SHIFT SUMMARY PT A&OX4. PT ADMITTED DUE TO COPD EXACERBATION. PT WEARS 2L N/C AT BASELINE. PT ON 3L O2 VIA VENTI MASK. PT REPORTS PREFERING VENTI MASK THAN N/C. PT HAD A COUGHING FIT EARLIER, SATS DECREASED TO 70'S%. PT DID PURSED LIP BREATHING AND DEEP BREATHING, INCREASED O2 TO 7L. ONCE PT FELT MORE CONTROL OF BREATHING, DECREASED O2 BACK TO 3L. PT SATS ARE 89%. INCENTIVE SPIROMETER AT BEDSIDE, PT UNDERSTANDS NEED TO USE. PT GETTING IMAN FOR AIR HUNGER. PT RECEIVED BREATHING TREATMENT FROM RESPIRATORY THERAPY. PT REPORTS NO PAIN. PT USES BSC. PT GETS TACHYPNIC WITH AMBULATION. PT REPORTS NO PAIN. PT ENCOURAGED TO EAT, PREFERS ENSURE. COURTROOM CLERK AND PALLIATIVE CARE WAS CONSULTED TODAY. BED IN LOWEST POSITION, CALL LIGHT IN REACH.
[2024-10-20 19:15] VITALS: BP 155/101
[2024-10-20] MEDS ORDERED: Lactobacil 2-S.Thermo-Bifido 1 1 Cap PO SCH (21:00)
[2024-10-21 04:51] VITALS: BP 124/88
[2024-10-21 05:58] LABS: BASOPHILS ABSOLUTE AUTO 0.01 K/mm3 (0.00-0.23); BASOPHILS PERCENT AUTO 0 % (0-2); EOSINOPHILS PERCENT AUTO 0 % (0-6); Hematocrit 44.6 % (33.0-51.0); Hemoglobin 14.8 g/dL (11.5-16.0); IMMATURE GRAN PERCENT AUTO 1 % (0-1); LYMPHOCYTES ABSOLUTE AUTO 0.93 K/mm3 (0.84-5.20); LYMPHOCYTES PERCENT AUTO 10 % (21-46); MONOCYTES ABSOLUTE AUTO 0.65 K/mm3 (0.16-1.47); MONOCYTES PERCENT AUTO 7 % (4-13); Mean Corpuscular HGB 30.8 pg (26.0-34.0); Mean Corpuscular HGB Conc 33.2 g/dL (31.5-36.5); Mean Corpuscular Volume 93 fL (80-100); NEUTROPHILS ABSOLUTE AUTO 8.01 K/mm3 (1.96-9.15); NEUTROPHILS PERCENT AUTO 83 % (41-73); Platelet Count 207 K/mm3 (150-400); RDW Coefficient Variation 12.4 % (11.7-14.2); RDW Standard Deviation 42.2 fL (35.1-46.3); Red Blood Cell Count 4.81 M/mm3 (3.80-5.20)
[2024-10-21 06:22] LABS: Albumin, Blood 3.4 g/dL (3.4-5.0); Albumin/Globulin Ratio 1.4 (0.8-1.8); Bilirubin, Total 0.5 mg/dL (0.1-1.0); Bun/Creatinine Ratio 32.9 (12.0-20.0); Calcium, Blood 9.3 mg/dL (8.5-10.1); Creatinine, Blood 0.76 mg/dL (0.40-1.00); Globulin, Blood 2.5 g/dL (2.2-4.0); Potassium, Blood 4.5 mmol/L (3.5-5.5); Total Protein, Blood 5.9 g/dL (6.4-8.2)
--- NOTE | 2024-10-21 06:38 | NUR ---
AAOX4, USES CALL LIGHT FOR NEEDS. TELE IN PLACE, SR-80'S. 3L NC OR MASK DEPENDING ON TOLERANCE. MINIMAL ASSIST TO BSC. POLST ON WHITE BOARD IN ROOM. CONSIDERING PALLITIVE CARE.
[2024-10-21 07:11] VITALS: BP 121/85
[2024-10-21 09:16] LABS: Bicarbonate Venous 37.1 mmol/L (24.0-30.0); PCO2 Venous 51.2 mmHg (38-42); pH Blood Venous 7.49 (7.34-7.37)
[2024-10-21 09:17] LABS: Base Excess Venous 15.9 mmol/L
--- NOTE | 2024-10-21 10:30 | NUR ---
AM NOTE: PATIENT ALERT AND ORIENTED X4. DENIES N/T. PERRLA, WEARING GLASSES. UP WITH ONE PERSON/SBA TO BSC. ABLE TO MOVE SELF IND IN BED. ON 2L NASAL CANNULA SATING MID 90'S. LUNG SOUNDS DIMINISHED THROUGHOUT. OCCASIONAL HACKING COUGH. EVEN AND UNLABORED RESPIRATIONS AT REST. NICOTINE PATCH TO RIGHT SHOULDER. VBG DRAWN THIS AM. TELE SHOWING SR WITH HR 80'S. DENIES CHEST PAIN/PRESSURE/PALPITATIONS. NO EDEMA NOTED. IV SALINE LOCKED. PPP. BOWEL TONES PRESENT. PATIENT DENIES ISSUES WITH VOIDING. COMPLAINS OF HISTORY OF CONSTIPATION. UP TO BS WITH ASSISTANCE. INTERMIT NAUSEA, ALTHOUGH TOLERATING DIET. MEDICATED THIS AM WITH ZOFRAN. SKIN OVERALL C/D/I WITH SOME SCATTERED BRUISING. CALL LIGHT IN REACH. VISITORS IN ROOM AT THIS TIME. DR. VERMA BY THIS AM, NO NEW ORDERS FOR THIS RN TO PLACE.
[2024-10-21 15:06] VITALS: BP 152/89
--- NOTE | 2024-10-21 18:33 | NUR ---
PT ALERT AND ORIENTED, VSS, SR IN 80S ON TELE, 2-3 L O2 WITH OXYMASK OR NC. PT O2 INCREASED TO 3 L THIS AFTERNOON D/T DESATTING TO LOW 80S AFTER USING RESTROOM. SBA-1PA TO BSC OR BATHROOM. NO COMPLAINTS OF PAIN. CALL LIGHT IN REACH, CALLS APPROPRIATLY.
[2024-10-21 19:21] VITALS: BP 158/98
[2024-10-22 04:28] VITALS: BP 105/78
[2024-10-22 05:05] LABS: BASOPHILS ABSOLUTE AUTO 0.01 K/mm3 (0.00-0.23); BASOPHILS PERCENT AUTO 0 % (0-2); EOSINOPHILS ABSOLUTE AUTO 0.04 K/mm3 (0.00-0.68); EOSINOPHILS PERCENT AUTO 0 % (0-6); Hematocrit 47.5 % (33.0-51.0); Hemoglobin 15.6 g/dL (11.5-16.0); IMMATURE GRAN PERCENT AUTO 1 % (0-1); LYMPHOCYTES ABSOLUTE AUTO 2.62 K/mm3 (0.84-5.20); LYMPHOCYTES PERCENT AUTO 29 % (21-46); MONOCYTES PERCENT AUTO 10 % (4-13); Mean Corpuscular HGB 30.7 pg (26.0-34.0); Mean Corpuscular HGB Conc 32.8 g/dL (31.5-36.5); Mean Corpuscular Volume 94 fL (80-100); Mean Platelet Volume 10.2 fL (9.1-12.4); NEUTROPHILS ABSOLUTE AUTO 5.37 K/mm3 (1.96-9.15); NEUTROPHILS PERCENT AUTO 59 % (41-73); Platelet Count 203 K/mm3 (150-400); RDW Coefficient Variation 12.4 % (11.7-14.2); Red Blood Cell Count 5.08 M/mm3 (3.80-5.20); White Blood Cell Count 9.04 K/mm3 (4.00-11.30)
--- NOTE | 2024-10-22 05:20 | NUR ---
AAOX 4, USES CALL LIGHTS FOR NEEDS. INDEPENDENT TO BSC. TELE IN PLACE, SR @ 98. 3L 02 VIA [place] DURING DAY AND MASK @ HS. CONSULTATION FOR HOME OXYGEN NEEDS AND THEN DC HOME.
[2024-10-22 05:55] LABS: Albumin, Blood 3.4 g/dL (3.4-5.0); Albumin/Globulin Ratio 1.3 (0.8-1.8); Bilirubin, Total 0.4 mg/dL (0.1-1.0); Bun/Creatinine Ratio 30.3 (12.0-20.0); Calcium, Blood 9.7 mg/dL (8.5-10.1); Creatinine, Blood 0.92 mg/dL (0.40-1.00); Globulin, Blood 2.7 g/dL (2.2-4.0); Potassium, Blood 4.2 mmol/L (3.5-5.5); Total Protein, Blood 6.1 g/dL (6.4-8.2)
[2024-10-22 08:14] VITALS: BP 126/90
[2024-10-22] MEDS ORDERED: PredniSONE 20 MG Tab PO SCH (09:00)
--- NOTE | 2024-10-22 11:31 | NUR ---
Spiritual Care Visit | Pt. Request Pt. is awake in bed and welcomes my visit. Pt. displayed evidence of SOB and this 8th grade teacher suggested that the pt. put her 02 canula back in her nose. Pt. displayed some measure of relief. Pt. verbalized her condition as I facilitated a life review. Listened with interest and a calming presence. Pt. displayed evidence of being engaged and motivitated, though she verbalized that she was scared that "this time was the last time." Pt. verbalized that her last cigarette was earlier this week, and that she knows she has to quit. Considered matters of jhonny and belief. Prayed for the Pt. Pt. verbalized gratitude for the spiritual care visit, and welcomed this 8th grade teacher to return.
[2024-10-22 15:20] VITALS: BP 124/93
--- NOTE | 2024-10-22 19:16 | NUR ---
PATIENT ALERT AND ORIENTED, VSS, 2LNC, SR 90S ON TELE. C/O SOB WITH EXERTION, MD AWARE, PT TO STAY TONIGHT. TYLENOL GIVEN FOR PAIN, MORPHINE X1 FOR AIR HUNGER AFTER COUGHING. PT SBA TO BSC, ABLE TO MAKE NEEDS KNOWN, CALL LIGHT IN REACH.
[2024-10-22 19:23] VITALS: BP 130/90
[2024-10-23 03:54] VITALS: BP 105/89
--- NOTE | 2024-10-23 05:55 | NUR ---
AAO X4, UP TO BSC INDEPENDENTLY AND USES CALL LIGHT FOR NEEDS. TELE IN PLACE, NSR IN THE 80'S. 3L O2 VIA NC DURING DAY AND MASK @ HS. NON-PRODUCTIVE COUGH. C/O INCREASED SOB, REQUESTED ROXANOL. ROXANOL IMPROVED SOB. EMISIS X1, ZOFRAN GIVEN AND N/V IMPROVED. VSS. AWAITING HOME OXYGEN, SHE NEEDS PORTABLE OXYGEN FOR RIDE HOME TODAY.
[2024-10-23 07:34] VITALS: BP 104/85
--- NOTE | 2024-10-23 09:00 | NUR ---
pt laying in bed awake a/ox4, pleasant and cooperative with care, follows david well, denies pain, lungs are dim, but can hear air t/o, possible some fine wheezing, currently on 3 liters o2 via n/c, resp even and unlabored, no cough at this time, tele in place running sr to st per monitor, see strip, no edema noted, ppp+2, cap refill <3 sec, vs stable, afebrile, piv to lac site is clear and patent, btx4, abd flat soft, nontender, voids without diff, does report constipation, she drank some prune juice, skin c/w/d vicki lorenzo, call light in reach.
[2024-10-23] MEDS ORDERED: VISBIOME 112.51 EACH PO (14:21)
[2024-10-23] MEDS ORDERED: Nicoderm Cq1 EAC1 TOP (14:21)
[2024-10-23] MEDS ORDERED: ALBU2.5V5 INH (14:22)
[2024-10-23] MEDS ORDERED: MIRALAX17 GM PO (14:23)
--- NOTE | 2024-10-23 16:22 | NUR ---
pt has been discharged to home, went over discharge instructions with her, she verbalized understanding, new meds were faxed to [facility], iv removed intact, has no o2 here to go home with, child care centre manager notified.
--- NOTE | 2024-10-23 17:45 | NUR ---
Pt had ptbl o2 delivered from [facility], left via wheelchair with daughter and spareribs trimmer in attendence with all her belongings.
== END 2024-10-23 17:39 | disposition home or self-care (01) | DRG 189 ==
LOC: ER 16:37 → ERHOLD 21:15 → MEDS 10-19 14:25 → ENPENDDIS 10-23 13:20 → MEDS 10-23 17:39
PROVIDERS: Family Medicine; Physician Assistant; Student in an Organized Health Care Education/Training Program; ADMIT Internal Medicine
DX: J96.21 Acute and chronic respiratory failure with hypoxia (principal); J44.1 Chronic obstructive pulmonary disease with (acute) exacerbation; F17.213 Nicotine dependence, cigarettes, with withdrawal; J96.22 Acute and chronic respiratory failure with hypercapnia; M47.812 Spondylosis without myelopathy or radiculopathy, cervical region; F41.1 Generalized anxiety disorder; Z66 Do not resuscitate; Z79.899 Other long term (current) drug therapy; G35 Multiple sclerosis; F17.210 Nicotine dependence, cigarettes, uncomplicated; E78.5 Hyperlipidemia, unspecified; R73.9 Hyperglycemia, unspecified; E87.8 Other disorders of electrolyte and fluid balance, not elsewhere classified; I10 Essential (primary) hypertension; M79.7 Fibromyalgia; G43.909 Migraine, unspecified, not intractable, without status migrainosus; M19.90 Unspecified osteoarthritis, unspecified site; F41.9 Anxiety disorder, unspecified; G47.00 Insomnia, unspecified; E78.00 Pure hypercholesterolemia, unspecified; Z87.19 Personal history of other diseases of the digestive system; Z79.891 Long term (current) use of opiate analgesic; Z90.49 Acquired absence of other specified parts of digestive tract; Z90.89 Acquired absence of other organs; Z98.890 Other specified postprocedural states
CPT/HCPCS: 0241U; 36415; 71046; 80053; 82803; 83735; 83880; 84484; 85025; 87070; 87077; 87186; 87205; 93005; 93010; 94640; 94644; 94664; 94760; 97110; 97161; 97530; 99285-25; A9270; J0456; J1650; J2405; J2919; J7050; J7512

== ENCOUNTER 2025-01-11 18:46 | Inpatient (IN) | payer OTHER ==
[~2025-01-11] VITALS: Ht 160 cm; Wt 47.3 kg
[~2025-01-11 18:46] MED LIST changes: +Buspirone HCl15 MG PO; +CELE100 PO; +FORMOTEROL20 MCG/2 M INH; +LYRICA150 M1 PO; +MIRALAX17 GM PO; +MONDOXYNE NL100 MG PO; +QUET100 PO; +TIZANIDINE HCL2 M1 PO
[2025-01-11] MEDS ORDERED: Albuterol 2.5 MG/3 ML VIAL INH SCH (18:50)
[2025-01-11 19:15] LABS: BASOPHILS ABSOLUTE AUTO 0.02 K/mm3 (0.00-0.23); BASOPHILS PERCENT AUTO 0 % (0-2); EOSINOPHILS ABSOLUTE AUTO 0.01 K/mm3 (0.00-0.68); EOSINOPHILS PERCENT AUTO 0 % (0-6); Hematocrit 48.1 % (33.0-51.0); IMMATURE GRAN ABSOLUTE AUTO 0.05 K/mm3 (0.00-0.10); IMMATURE GRAN PERCENT AUTO 0 % (0-1); LYMPHOCYTES ABSOLUTE AUTO 2.25 K/mm3 (0.84-5.20); LYMPHOCYTES PERCENT AUTO 18 % (21-46); MONOCYTES ABSOLUTE AUTO 0.64 K/mm3 (0.16-1.47); MONOCYTES PERCENT AUTO 5 % (4-13); Mean Corpuscular HGB Conc 33.3 g/dL (31.5-36.5); Mean Corpuscular Volume 93 fL (80-100); Mean Platelet Volume 10.4 fL (9.1-12.4); NEUTROPHILS ABSOLUTE AUTO 9.33 K/mm3 (1.96-9.15); NEUTROPHILS PERCENT AUTO 76 % (41-73); Platelet Count 253 K/mm3 (150-400); RDW Coefficient Variation 13.4 % (11.7-14.2); RDW Standard Deviation 46.3 fL (35.1-46.3); Red Blood Cell Count 5.16 M/mm3 (3.80-5.20)
[2025-01-11 19:34] LABS: Bun/Creatinine Ratio 22.9 (12.0-20.0); Calcium, Blood 9.2 mg/dL (8.5-10.1); Creatinine, Blood 0.66 mg/dL (0.40-1.00); Potassium, Blood 4.2 mmol/L (3.5-5.5)
[2025-01-11 19:38] LABS: Bicarbonate Venous 25.9 mmol/L (24.0-30.0); pH Blood Venous 7.47 (7.34-7.37)
[2025-01-11 20:00] LABS: Influenza A, PCR NEGATIVE (NEGATIVE); Influenza B, PCR NEGATIVE (NEGATIVE); Resp Syncytial Virus, PCR NEGATIVE (NEGATIVE); SARS-Cov-2 (COVID-19) PCR, MMC NEGATIVE (NEGATIVE)
[2025-01-11] MEDS ORDERED: Albuterol 2.5 MG/3 ML VIAL INH PRN (20:15)
[2025-01-11] MEDS ORDERED: NS 1,000 ML IV SCH (20:15)
[2025-01-11] MEDS ORDERED: Ipratropium/Albuterol SulF 2.5-0.5MG/3 ML Amp INH SCH (20:20)
[2025-01-11] MEDS ORDERED: FLU VACC TS2024-25(6MOS UP)/PF 45 MCG/0.5 ML SYRINGE IM ONE (20:20)
[2025-01-11] MEDS ORDERED: Ondansetron HCl 2 MG / ML 2ML Vial IV PRN (20:20)
[2025-01-11] MEDS ORDERED: NS 1,000 ML IV ONE (20:25)
[2025-01-11] MEDS ORDERED: QUEtiapine Fumarate 100 MG Tab PO SCH (21:00)
[2025-01-11] MEDS ORDERED: BusPIRone HCl 10 MG Tab PO SCH (21:00)
[2025-01-11] MEDS ORDERED: Azithromycin 500 MG in NS 250 ML IV SCH (21:08)
[2025-01-11 22:06] VITALS: BP 152/82
[2025-01-11] MEDS ORDERED: NS 250 ML IV PRN (22:40)
--- NOTE | 2025-01-11 23:44 | NUR ---
2200 RECEIVED PT TO RM 310 VIA YUNIELRJUANCHO FROM ER. PT ADMITTED FOR COPD EXAC. PT ON C-PAP IN ER. PER REPORT FROM TERRA KEYS, PT USING 3L O2 AT BASELINE HOME O2, BUT COMING IN VIA EMS VERY SOB WITH BIOX IN 70'S. C-PAP PLACED WITH IMPROVEMENT. PT REPORTING 51 YR HX OF SMOKING, ALSO REPORTING THAT SHE SMOKES MARIJAUANA DAILY WELL. PT UNABLE TO TOLERATE C-PAP FOR LONG PERIODS OF TIME. CURRENTLY ON N/C AT 3L; BIOX >95%. PT UP TO BTHRM INDEPENDENTLY NEEDED. PT DOES GET SOB WITH EXERTION. HAS SOME ANXIETY WELL. IVF'S AND IV ABX INFUSING AT THIS TIME. PT RESTING QUIETLY WITH CALL LT IN HAND.
[2025-01-12] MEDS ORDERED: MethylPREDNISolone Sod Succ 125 MG Vial IV SCH
--- NOTE | 2025-01-12 00:50 | NUR ---
PT REQUESTING TO BE DNR; REPORT GIVEN TO ONCOMING RN.
--- NOTE | 2025-01-12 04:07 | NUR ---
RESUMED CARE FOR PT WHOM WAS ADMITTED FROM ED THIS SHIFT WITH COPD EXACERBATION. PT NOTED TO BE ON 3L/NC WITH SPO2 AT 96%. PT STATED TO THIS NURSE THAT SHE USES 3L AT HOME. PT NOTED TO BE UP TO RESTROOM A COUPLE TIMES THROUGHOUT THE NIGHT INDEPENDENTLY WITH STEADY GAIT NOTED.
[2025-01-12 04:38] VITALS: BP 108/64
[2025-01-12 05:30] LABS: BASOPHILS PERCENT AUTO 0 % (0-2); EOSINOPHILS PERCENT AUTO 0 % (0-6); Hematocrit 39.2 % (33.0-51.0); Hemoglobin 12.9 g/dL (11.5-16.0); IMMATURE GRAN ABSOLUTE AUTO 0.02 K/mm3 (0.00-0.10); IMMATURE GRAN PERCENT AUTO 0 % (0-1); LYMPHOCYTES ABSOLUTE AUTO 0.68 K/mm3 (0.84-5.20); LYMPHOCYTES PERCENT AUTO 14 % (21-46); MONOCYTES ABSOLUTE AUTO 0.05 K/mm3 (0.16-1.47); MONOCYTES PERCENT AUTO 1 % (4-13); Mean Corpuscular HGB Conc 32.9 g/dL (31.5-36.5); Mean Corpuscular Volume 94 fL (80-100); Mean Platelet Volume 10.6 fL (9.1-12.4); NEUTROPHILS ABSOLUTE AUTO 4.11 K/mm3 (1.96-9.15); NEUTROPHILS PERCENT AUTO 85 % (41-73); Platelet Count 213 K/mm3 (150-400); RDW Coefficient Variation 13.7 % (11.7-14.2); RDW Standard Deviation 47.2 fL (35.1-46.3); Red Blood Cell Count 4.16 M/mm3 (3.80-5.20); White Blood Cell Count 4.86 K/mm3 (4.00-11.30)
[2025-01-12 06:00] LABS: Bun/Creatinine Ratio 21.1 (12.0-20.0); Calcium, Blood 7.9 mg/dL (8.5-10.1); Creatinine, Blood 0.71 mg/dL (0.40-1.00)
[2025-01-12] MEDS ORDERED: Omeprazole 20 MG CapCR PO SCH (06:00)
[2025-01-12 07:30] VITALS: BP 114/76
--- NOTE | 2025-01-12 08:18 | NUR ---
ASSUMPTION OF CARE: ASSUMED CARE OF PATIENT. ASLEEP DURING SHIFT CHANGE REPORT. LYING IN BED ON SIDE, FACING THE WINDOW; MOTHER, HAYDER, ASLEEP ON THE GUEST BED. D5 1/2 @ 100mL/hr. BED IN LOWEST POSITION. CALL LIGHT WITHIN REACH. NO ACUTE NEEDS.
--- NOTE | 2025-01-12 08:20 | NUR ---
ASSUMPTION OF CARE: ASSUMED CARE OF PATIENT. AWAKE DURING SHIFT CHANGE REPORT, REQUESTING TO USE BATHROOM. IV PAUSED AND UNHOOKED TO AMULATE TO BATHROOM. RT @ BEDSIDE FOR BD Tx. O2 IN PLACE @ 3LPM/NC. BED IN LOWEST POSITION. CALL LIGHT WITHIN REACH. NO ACUTE NEEDS.
[2025-01-12] MEDS ORDERED: Enoxaparin 40 MG/0.4 ML SYR SC SCH (09:00)
[2025-01-12] MEDS ORDERED: Atorvastatin 40 MG Tab PO SCH (09:00)
[2025-01-12 13:04] LABS: Base Excess Venous 1.5 mmol/L; Bicarbonate Venous 25.5 mmol/L (24.0-30.0); PCO2 Venous 40.9 mmHg (38-42); pH Blood Venous 7.41 (7.34-7.37)
[2025-01-12] MEDS ORDERED: PREGABALIN75 MG (14:02)
[2025-01-12] MEDS ORDERED: CELE100 PO (14:02)
[2025-01-12] MEDS ORDERED: NICORETTE4 M1 BC (14:03)
[2025-01-12] MEDS ORDERED: NICO21TP TOP (14:04)
[2025-01-12 15:48] VITALS: BP 129/87
[2025-01-12] MEDS ORDERED: HyDROXyzine HCl 25 MG Tab PO PRN (17:05)
[2025-01-12] MEDS ORDERED: Acetaminophen 325 MG TABLET PO PRN (17:30)
--- NOTE | 2025-01-12 18:13 | NUR ---
END OF SHIFT SUMMARY: A&Ox4. PLEASANT AND COOPERATIVE WITH CARE. CALLS APPROPRIATELY AND IS ABLE TO ADVOCATE NEEDS EFFECTIVELY. SBA D/T LINE MANAGEMENT AND DYSPNEA c EXERTION. AMBULATES INDEPENDENTLY @ [facility]. MEDS WHOLE c FLUIDS. NICOTINE REPLACEMENT PATECH PROVIDED. SPEECH THERAPY ORDERED D/T DYSPHAGIA; SEVEN YEARS S/P SAVARY DILATION. DID REQUEST CODE BE CHANGED TO LIMITED; WOULD LIKE INTUBATION BUT NOT CHEST COMPRESSIONS IN THE EVENT OF CARDIAC AND/OR RESPIRATORY ARREST. VBGs COLLECTED; pH 7.41. LOW-GRADE FEVER NOTED THIS AFTERNOON AND APAP WAS ORDERED. ALSO EXPERIENCING SOME ANXIETY AND FLUSHING SKIN SINCE STARTING IV STEROIDS. PROVIDER NOTIFIED AND PRN HYDRALAZINE ORDERED AND ADMINISTERED. BED IN LOWEST POSITION, CALL LIGHT WITHIN REACH, ALL NEEDS MET. REPORT TO ONCOMING NURSE.
[2025-01-12 20:08] VITALS: BP 137/93
[2025-01-13 03:22] VITALS: BP 127/89
--- NOTE | 2025-01-13 04:46 | NUR ---
SHIFT SUMMARY; PATIENT SLEPT IN LONG INTERVALS. ABOUT HALF THE NIGHT WITH CPAPA ON WITH 3L BLEED-IN. WAS ABLE TO AMB TO BR WITH MILD SOB.
--- NOTE | 2025-01-13 07:32 | NUR ---
ASSUMPTION OF CARE: ASSUMED CARE OF PATIENT. AWAKE DURING SHIFT CHANGE REPORT. SITTING UP IN BED, WATCHING TV. BiOx IN PLACE, MAINTAINING SPO2 >92% ON 3LPM/NC. RT @ BEDSIDE FOR BREATHING Tx. BED IN LOWEST POSITION. CALL LIGHT WITHIN REACH. PROVIDED c REQUESTED CUP OF COFFEE.
[2025-01-13 07:47] VITALS: BP 137/89
[2025-01-13] MEDS ORDERED: Nicotine 21 MG PATCH TOP SCH (09:00)
[2025-01-13] MEDS ORDERED: TiZANidine HCl 4 MG Tab PO SCH (09:00)
[2025-01-13] MEDS ORDERED: ALPRAZolam 0.5 MG Tab PO PRN (14:45)
[2025-01-13 16:05] VITALS: BP 133/92
[2025-01-13 20:06] VITALS: BP 140/92
--- NOTE | 2025-01-13 20:11 | NUR ---
END OF SHIFT SUMMARY: A&Ox4. PLEASANT AND COOPERATIVE WITH CARE. CALLS APPROPRIATELY AND IS ABLE TO ADVOCATE NEEDS EFFECTIVELY. SBA D/T LINE MANAGEMENT AND DYSPNEA c EXERTION. AMBULATES INDEPENDENTLY (4WW FOR O2 TANK) @ [facility]. MEDS WHOLE c FLUIDS. LOW-GRADE FEVER NOTED THIS AFTERNOON AND APAP GIVEN. CONTINUED ANXIETY TODAY. STEROIDS VS TRAUMA OF BEING LOST IN THE NUGENT VS VS MISSING TRAZODONE x5 DAYS VS STEROIDS. PRN HYDRALAZINE NOT EFFECTIVE; GIVEN ONE TIME DOSE PRN ALPRAZOLAM WHICH PROVIDED RELIEF FROM ANXIETY IN ADDITION TO FAMILY VISITING. BED IN LOWEST POSITION, CALL LIGHT WITHIN REACH, ALL NEEDS MET. REPORT TO ONCOMING NURSE.
[2025-01-13] MEDS ORDERED: TraZODone HCl 50 MG Tab PO SCH (21:00)
[2025-01-14 03:30] VITALS: BP 134/84
--- NOTE | 2025-01-14 05:34 | NUR ---
PROFESSOR OF ENVIRONMENTAL ENGINEERING SUMMARY PT IS ON HER BASELINE DOSE OF OXYGEN AND IS GETTING LESS SHORT OF BREATH WITH ACTIVITY. ANTICIPATING POSSIBLE DISCHARGE TODAY.
[2025-01-14 07:22] VITALS: BP 135/92
[2025-01-14] MEDS ORDERED: HYDHCL25 PO (13:18)
[2025-01-14] MEDS ORDERED: Acetaminophen650 M1 PO (13:18)
[2025-01-14] MEDS ORDERED: IPRAT-ALBUT 0.5-3 ML INH (13:18)
[2025-01-14] MEDS ORDERED: PRED20 PO (13:19)
--- NOTE | 2025-01-14 14:50 | NUR ---
SHIFT SUMMARY: PT D/C @ 1440 VIA WHEELCHAIR WITH SISTER. NEW MEDICATIONS, PREDNISONE AND ATARAX, FAXED TO [facility]. IV REMOVED BY THIS RN W/O COMPLICATIONS. PORTABLE 02 BROUGHT IN BY SISTER. PT D/C ON 3L. FOLLOW-UP APPOINTMENT WITH DR. VERMA ON 01-20-25 @ 1200. PT AWARE OF FOLLOW-UP APPOINTMENT. DISCHARGE QUESTIONS ANSWERED TO THE BEST OF THIS RN ABILITY.
== END 2025-01-14 14:40 | disposition home or self-care (01) | DRG 189 ==
LOC: ER 18:46 → MEDS 18:47 → ENPENDDIS 01-14 13:28 → MEDS 01-14 14:40
PROVIDERS: Emergency Medicine; Family Medicine; Nurse Practitioner Acute Care; ADMIT Internal Medicine
PROC: 5A09357 Assistance with Respiratory Ventilation, Less than 24 Consecutive Hours, Continuous Positive Airway Pressure (ICD-10-PCS; principal; 2025-01-12)
DX: J96.21 Acute and chronic respiratory failure with hypoxia (principal); J44.1 Chronic obstructive pulmonary disease with (acute) exacerbation; F32.A Depression, unspecified; F41.9 Anxiety disorder, unspecified; K21.9 Gastro-esophageal reflux disease without esophagitis; E78.5 Hyperlipidemia, unspecified; Z66 Do not resuscitate; G35 Multiple sclerosis; G47.00 Insomnia, unspecified; F17.200 Nicotine dependence, unspecified, uncomplicated; I10 Essential (primary) hypertension; R79.1 Abnormal coagulation profile; D72.829 Elevated white blood cell count, unspecified; Z99.81 Dependence on supplemental oxygen; Z79.52 Long term (current) use of systemic steroids
CPT/HCPCS: 0241U; 36415; 71045; 71260; 80048; 82803; 83880; 84484; 85025; 85379; 93005; 93010; 94640; 94644; 94660; 94664; 94760; 94762; 96365; 96372; 96375; 96376; 99285-25; A9270; G0378; J0456; J1650; J2405; J2919; J7030; J7050; Q9967

== ENCOUNTER → 2025-07-05 | Outpatient (CLI) | payer OTHER ==
[~2025-07-05] MED LIST changes: +Acetaminophen650 M1 PO; +HYDHCL25 PO; +NICO21TP TOP; +NICORETTE4 M1 BC; +PREGABALIN75 MG
== END ==
LOC: LAB SHORT 16:05 → LAB 16:05
PROVIDERS: Family Medicine
DX: Z01.419 Encounter for gynecological examination (general) (routine) without abnormal findings (principal)
CPT/HCPCS: 87624; G0145